=== PATIENT | male | born 1980 | race Caucasian/White ===

== ENCOUNTER 2018-05-27 12:31 | Outpatient (REF) | payer MEDICAID, SELFPAY ==
[2018-05-27 21:11] LABS: ALT 28 U/L (12-78); AST 16 U/L (15-37); Albumin 3.8 g/dL (3.4-5.0); Alkaline Phosphatase 96 U/L (46-116); Anion Gap 9.6 mmol/L (3-11); BUN 30 mg/dL (7-18); Bilirubin, Total 0.2 mg/dL (0.2-1.0); CO2 25.4 mmol/L (21.0-32.0); CREATININE 1.26 mg/dL (0.70-1.30); Calcium 10.1 mg/dL (8.5-10.1); Chloride 105 mmol/L (98-107); Glucose 94 mg/dL (70-100); Potassium 4.7 mmol/L (3.5-5.1); Sodium 140 mmol/L (136-145); Total Protein 7.2 g/dL (6.4-8.2)
[2018-05-27 21:13] LABS: HCT 43.1 % (40.0-50.0); HGB 14.5 g/dL (13.5-17.5); Mean Corp. HGB Concentration 33.6 g/dL (32.0-36.0); Mean Corpuscular Hemoglobin 28.8 pg (27.0-33.0); Mean Corpuscular Volume 85.5 fL (80-95); Mean Platelet Volume 9.3 fL (8.0-11.0); Platelet Count 466 x1000/uL (130-400); RBC 5.04 m/cumm (4.50-6.00); White Blood Cell Count 8.98 k/cumm (4.4-10.8)
== END 2018-05-27 12:32 ==
LOC: NCHCN 12:31
PROVIDERS: PCP Registered Nurse; Visit Provider Nurse Practitioner Family
DX: E10.8 Type 1 diabetes mellitus with unspecified complications (principal); I10 Essential (primary) hypertension; N18.9 Chronic kidney disease, unspecified
CPT/HCPCS: 80053; 85027

== ENCOUNTER 2018-08-19 10:56 | Outpatient (REF) | payer MEDICAID, SELFPAY ==
[2018-08-19 21:06] LABS: ALT 29 U/L (12-78); AST 16 U/L (15-37); Albumin 3.3 g/dL (3.4-5.0); Alkaline Phosphatase 103 U/L (46-116); Anion Gap 10.4 mmol/L (3-11); BUN 28 mg/dL (7-18); Bilirubin, Total 0.3 mg/dL (0.2-1.0); CO2 27.6 mmol/L (21.0-32.0); CREATININE 1.54 mg/dL (0.70-1.30); Calcium 9.7 mg/dL (8.5-10.1); Chloride 98 mmol/L (98-107); Estimated GFR 50.54 (mL/min/1.73m2); Glucose 306 mg/dL (70-100); Potassium 4.5 mmol/L (3.5-5.1); Sodium 136 mmol/L (136-145); Total Protein 6.7 g/dL (6.4-8.2)
[2018-08-19 21:27] LABS: COMMENT (LAB VIEW ONLY) 80.89 mg/dL; PROTEIN 76.3 mg/dL; Prot/Crea Ur Ratio 0.94
== END 2018-08-19 11:16 ==
LOC: NCHCN 10:56
PROVIDERS: PCP Registered Nurse; Visit Provider Nurse Practitioner Family
DX: E10.8 Type 1 diabetes mellitus with unspecified complications (principal); I10 Essential (primary) hypertension; N18.1 Chronic kidney disease, stage 1; F11.21 Opioid dependence, in remission; G89.4 Chronic pain syndrome
CPT/HCPCS: 80053; 82565; 84156

== ENCOUNTER 2019-05-03 14:21 | Outpatient (REF) | payer SELFPAY ==
[2019-05-03 22:35] LABS: COMMENT (LAB VIEW ONLY) 134.67 mg/dL
== END 2019-05-03 14:41 ==
LOC: NCHCN 14:21
PROVIDERS: PCP Registered Nurse; Visit Provider Family Medicine
DX: E10.8 Type 1 diabetes mellitus with unspecified complications (principal)
CPT/HCPCS: 82043; 82570

== ENCOUNTER 2019-06-08 11:14 | Outpatient (REF) | payer MEDICAID, SELFPAY ==
[2019-06-08 22:22] LABS: Anion Gap 9.1 mmol/L (3-11); BUN 19 mg/dL (7-18); CO2 26.9 mmol/L (21.0-32.0); Calcium 9.2 mg/dL (8.5-10.1); Chloride 101 mmol/L (98-107); Glucose 368 mg/dL (70-100); Potassium 5.2 mmol/L (3.5-5.1); Sodium 137 mmol/L (136-145)
== END 2019-06-08 11:34 ==
LOC: NCHCN 11:14
PROVIDERS: PCP Registered Nurse; Visit Provider Nurse Practitioner Family
DX: E10.8 Type 1 diabetes mellitus with unspecified complications (principal); I10 Essential (primary) hypertension
CPT/HCPCS: 80048

== ENCOUNTER 2020-05-15 13:30 | Outpatient (REF) | payer MEDICAID, SELFPAY ==
[2020-05-15 20:03] LABS: ALT 15 U/L (16-63); AST 13 U/L (15-37); Albumin 2.9 g/dL (3.4-5.0); Alkaline Phosphatase 96 U/L (46-116); Anion Gap 12.2 mmol/L (3-11); BUN 19 mg/dL (7-18); Bilirubin, Total 0.2 mg/dL (0.2-1.0); CO2 21.8 mmol/L (21.0-32.0); CREATININE 1.53 mg/dL (0.70-1.30); Calcium 8.7 mg/dL (8.5-10.1); Chloride 99 mmol/L (98-107); Estimated GFR 50.41 (mL/min/1.73m2); Glucose 419 mg/dL (74-106); Potassium 5.1 mmol/L (3.5-5.1); Sodium 133 mmol/L (136-145); Total Protein 6.4 g/dL (6.4-8.2)
[2020-05-15 22:27] LABS: Calculated LDL 179 mg/dL (<100); Cholesterol 256 mg/dL (<200); HDL Cholesterol 50 mg/dL (40-60); Triglyceride 137 mg/dL (<150)
== END 2020-05-15 13:50 ==
LOC: NCHCN 13:30
PROVIDERS: PCP Registered Nurse; Visit Provider Nurse Practitioner Community Health
DX: K92.0 Hematemesis (principal); N18.1 Chronic kidney disease, stage 1; N04.9 Nephrotic syndrome with unspecified morphologic changes; E78.5 Hyperlipidemia, unspecified; E10.8 Type 1 diabetes mellitus with unspecified complications
CPT/HCPCS: 80053; 80061

== ENCOUNTER 2021-01-16 22:52 | Outpatient (REF) | payer MEDICAID, SELFPAY ==
[2021-01-16 14:39] LABS: Prot/Crea Ur Ratio 0.35
== END 2021-01-16 22:53 | disposition home or self-care (01) ==
LOC: NCHCN 22:52
PROVIDERS: PCP Registered Nurse; Visit Provider Nurse Practitioner Family
DX: E10.8 Type 1 diabetes mellitus with unspecified complications (principal)
CPT/HCPCS: 82565; 84156

== ENCOUNTER 2024-08-09 18:03 | Outpatient (REF) | payer MEDICAID, SELFPAY ==
[2024-08-09 21:29] LABS: HCT 40.2 % (40.0-50.0); HGB 13.2 g/dL (13.5-17.5); MCHC 32.8 % (32.0-36.0); MCV 85 fL (80-95); MPV 8.7 fL (8.0-11.0); Platelet Count 425 10^3/uL (130-400); RBC 4.72 10^6/uL (4.36-5.78); RDW 14.7 % (11.8-14.1); WBC 9.05 10^3/uL (4.4-10.8)
[2024-08-09 21:47] LABS: ALT 20 U/L (16-63); AST 20 U/L (15-37); Albumin 4.2 g/dL (3.4-5.0); Alkaline Phosphatase 102 U/L (46-116); Anion Gap 12.3 mmol/L (3-11); BUN 27 mg/dL (7-18); CO2 26.7 mmol/L (21.0-32.0); CREATININE 1.9 mg/dL (0.70-1.30); Calcium 10.4 mg/dL (8.5-10.1); Calculated LDL 192 mg/dL (<100); Chloride 103 mmol/L (98-107); Cholesterol 286 mg/dL (<200); Estimated GFR 43.79 (mL/min/1.73m2); HDL Cholesterol 78 mg/dL (40-60); Potassium 4.6 mmol/L (3.5-5.1); Sodium 142 mmol/L (136-145); TSH (W/Ref FT4) 1.24 uIU/mL (0.36-3.74); Triglyceride 81 mg/dL (<150)
[2024-08-09 21:57] LABS: Glucose 42 mg/dL (74-106)
== END 2024-08-09 18:04 | disposition home or self-care (01) ==
LOC: NCHCN 18:03
PROVIDERS: PCP Registered Nurse; Visit Provider Family Medicine
DX: E10.9 Type 1 diabetes mellitus without complications (principal); Z13.220 Encounter for screening for lipoid disorders; R53.83 Other fatigue
CPT/HCPCS: 80053; 80061; 85027; 84443

== ENCOUNTER 2024-09-13 19:52 | Outpatient (REF) | payer MEDICAID, SELFPAY ==
[2024-09-13 21:45] LABS: COMMENT (LAB VIEW ONLY) 147.09 mg/dL
[2024-09-13 21:50] LABS: Microalb ug/mg Crea 156.5 ug/mg Cr
== END 2024-09-13 19:53 | disposition home or self-care (01) ==
LOC: NCHCN 19:52
PROVIDERS: PCP Registered Nurse; Visit Provider Family Medicine
DX: E10.9 Type 1 diabetes mellitus without complications (principal)
CPT/HCPCS: 82043; 82570